=== PATIENT | male | born 1960 | race Caucasian/White ===

== ENCOUNTER 2017-10-27 13:29 | Emergency (ER) | payer BC, SELFPAY ==
[2017-10-27 13:30] VITALS: BP 192/108; PULSE 88; RESP 18; TEMP 36.6; O2SAT 96; BMI 41.4
[2017-10-27 13:40] VITALS: BP 178/107; PULSE 83; RESP 20; O2SAT 99
--- NOTE | 2017-10-27 14:02 | EKG12_ITS ---
Test Reason : NEURO Blood Pressure : / mmHG Vent. Rate : 071 BPM Atrial Rate : 071 BPM P-R Int : 154 ms QRS Dur : 114 ms QT Int : 388 ms P-R-T Axes : 054 086 080 degrees QTc Int : 421 ms Normal sinus rhythm Normal ECG Confirmed by ALANNAH TSAI, NAHOMY ([id number]), newspaper copy editor RICA CHRISTENSEN ([id number]) on 10/29/2017 4:04:39 PM Referred By: ELBERT Confirmed By:NAHOMY JAFFE MD
--- NOTE | 2017-10-27 14:02 | CT_ITS ---
STUDY: CT BRAIN WITHOUT CONTRAST REASON FOR EXAM: Male, 57 years old. Arm and face paresthesia RADIATION DOSAGE (If Supplied By Facility): CTDIvol = ( 44.99 ) mGy, DLP = ( 812.98 ) mGycm TECHNIQUE: Transaxial CT imaging of the brain was performed without administration of intravenous contrast material. Individualized dose optimization techniques were used for this CT. COMPARISON: None. FINDINGS: Normal soft tissue structures. Normal calvarium. Normal size ventricles and extra-axial spaces for the patient's age. Normal white matter tracts of the cerebral hemispheres. Normal basal ganglia and thalami. Normal brainstem. Normal cerebellum. There is no intracranial hemorrhage. There are no findings of an acute ischemic infarction. Normal visualized paranasal sinuses. CT/Brain/Head without Contrast IMPRESSION: Normal unenhanced CT scan of the brain. Electronically Signed: Shanda Nelson MD at 14:44 EST Tel , Service support ,
[2017-10-27 14:10] VITALS: BP 144/91; PULSE 78; RESP 20; O2SAT 97
[2017-10-27] MEDS: 0.9% Normal Saline 1,000 ML 1000 ML IV (14:12)
[2017-10-27 14:16] LABS: Bedside Glucose 103 mg/dL (70-110)
[2017-10-27 14:40] LABS: Absolute Lymphocyte Count 2.19 X10^3/ul (0.83-4.51); Absolute Neutrophil Count 3.9 X10^3/uL (2.0-7.7); Basophil# 0.03 X10^3/uL; Basophil% 0.4 % (0-1); Eosinophil# 0.16 X10^3/uL; Eosinophils% 2.3 % (0-5); Hematocrit 41.1 % (40-54); Hemoglobin 14.5 g/dl (13.0-16.5); Lymphocyte # 2.19 X10^3/ul (4.0); Lymphocyte % 31.6 % (19-41); Mean Corp Hgb Conc 35.3 g/gl (32-36); Mean Corpuscular Hgb 31.7 pg (27.0-32.0); Mean Corpuscular Volume 89.9 fL (80-94); Mean Platelet Vol. 10.6 fl (6.2-12.0); Monocyte# 0.67 X10^3/uL; Monocyte% 9.7 % (0-10); Neutrophil # 3.85 X10^3/uL (2.7-7.7); Neutrophil % 55.4 % (47-70); Platelet Count 178 K/mm3 (150-450); RBC Distribution Width CV 12.9 % (11.6-14.6); Red Blood Count 4.57 M/mm3 (4.6-6.2); White Blood Count 6.9 K/mm3 (4.4-11.0)
[2017-10-27 14:41] LABS: POSITIVE COUNT NO; POSITIVE DIFFERENTIAL NO; POSITIVE MORPHOLOGY NO
[2017-10-27 14:51] LABS: Albumin, Serum 3.8 g/dL (3.2-5.0); Anion Gap 9 (5-15); BUN 21 mg/dL (7-18); BUN/Creat Ratio 19.1 RATIO (10-20); Calcium,Total 8.6 mg/dL (8.5-10.1); Chloride 105 mmol/L (98-107); EST Glomerular Filtration Rate 73 mL/min (>60); Est Glom Filt Rate - Afr Amer 88 mL/min (>60); Estimated Creatinine Clearance 84.07 ml/min; Glucose 111 mg/dL (74-106); Potassium 3.9 mmol/L (3.5-5.1); Sodium Level 141 mmol/L (136-145)
[2017-10-27 15:05] VITALS: BP 143/85; PULSE 72; RESP 18; O2SAT 98
--- NOTE | 2017-10-27 15:29 | ED.VISSUMM ---
- ER Visit Summary Date of Service: 10/27/17 Chief Complaint: Jaw locked History of Present Illness: The patient is a 57 M who his primary care physician is in [place]. He reports that just prior to coming the emergency department he had a single potato chip and his jaw spasmed and locked shot. Notes that it felt as though the left side of his tongue was spasmed as well. States that he was unable to breathe at all, even through his nose. He reports that this episode lasted approximately 2 minutes. He went to the bathroom during this and states that it looked like the left side of his face was paralyzed. That lasted 5-6 minutes. He reports that he was unable to swallow during this episode. That lasted 3-4 minutes. He reports that he had a similar episode approximately 7 weeks ago. Patient on review of systems states that he has very slight paresthesias in his left arm. He denies any other neurologic complaints. No weakness. No change in his vision. No difficulty walking. Physical Examination: Vitals: Stable. Afebrile. Neurological: Cranial nerves II through XII are intact. 5 out of 5 strength throughout. Normal sensation to light touch throughout. Normal yuqphn-tojz-znzuwi and wibw-hymo-gzdi bilaterally. Normal gait. Soft palate elevates bilaterally and symmetric. General: A&O x 3. NAD. Cardiovascular exam: Regular rate and rhythm, no murmur, rub or gallop. Respiratory exam: Clear to auscultation bilaterally. No wheezes or stridor. Abdominal exam: Soft, nontender, nondistended, normal bowel sounds. No peritoneal signs. Extremity: No clubbing, cyanosis, or edema. Test Results: CT brain is normal. CBC is normal. EKG is sinus at 71 with no acute changes. Chem-7 is normal. Emergency Department Course and Treatment: Patient has rested comfortably throughout 2 hour stay in the emergency department without complaint. Had a prolonged discussion with them about this episode. His inability to breathe makes me believe that he had laryngeal spasm. I do not have an explanation for his jaw locking shot or his tongue cramping off in addition to this. He states that he is under a great deal of stress. He denies a history of reflux or heartburn. However, given the laryngeal spasm he is given a dose of Protonix. Treatment Plan: Patient will be discharged on Prilosec. Instructed to follow-up his primary care physician as soon as possible. I feel that he should also see an gear shaver set up operator. Return to the emergency department for any worsening symptoms. Disposition: To home in improved and stable condition. Impression: 1. Laryngeal spasm, uncertain cause. 2. [place] spasm. This note was generated with [employer] dictation software. It may contain incorrect words, spelling, and punctuation that were not noted in review of the chart prior to signing ED Disposition - Plan for ED Patient: Disposition: Home or Assisted Living Chief Complaint: Neuro S/Sx Prescriptions: Omeprazole [Prilosec] 20 mg PO DAILY #30 capsule Referrals: Doctor,Your [STAFF PHYSICIAN] - As soon as possible Additional Instructions: Speak with your Doctor about referral to an ENT for further evaluation.
--- NOTE | 2017-10-27 15:32 | ED.DCSUM_ITS ---
- ER Visit Summary Date of Service: 10/27/17 Chief Complaint: Jaw locked History of Present Illness: The patient is a 57 M who his primary care physician is in [place]. He reports that just prior to coming the emergency department he had a single potato chip and his jaw spasmed and locked shot. Notes that it felt as though the left side of his tongue was spasmed as well. States that he was unable to breathe at all, even through his nose. He reports that this episode lasted approximately 2 minutes. He went to the bathroom during this and states that it looked like the left side of his face was paralyzed. That lasted 5-6 minutes. He reports that he was unable to swallow during this episode. That lasted 3-4 minutes. He reports that he had a similar episode approximately 7 weeks ago. Patient on review of systems states that he has very slight paresthesias in his left arm. He denies any other neurologic complaints. No weakness. No change in his vision. No difficulty walking. Physical Examination: Vitals: Stable. Afebrile. Neurological: Cranial nerves II through XII are intact. 5 out of 5 strength throughout. Normal sensation to light touch throughout. Normal finger-nose- finger and cxob-svzy-wzuc bilaterally. Normal gait. Soft palate elevates bilaterally and symmetric. General: A&O x 3. NAD. Cardiovascular exam: Regular rate and rhythm, no murmur, rub or gallop. Respiratory exam: Clear to auscultation bilaterally. No wheezes or stridor. Abdominal exam: Soft, nontender, nondistended, normal bowel sounds. No peritoneal signs. Extremity: No clubbing, cyanosis, or edema. Test Results: CT brain is normal. CBC is normal. EKG is sinus at 71 with no acute changes. Chem-7 is normal. Emergency Department Course and Treatment: Patient has rested comfortably throughout 2 hour stay in the emergency department without complaint. Had a prolonged discussion with them about this episode. His inability to breathe makes me believe that he had laryngeal spasm. I do not have an explanation for his jaw locking shot or his tongue cramping off in addition to this. He states that he is under a great deal of stress. He denies a history of reflux or heartburn. However, given the laryngeal spasm he is given a dose of Protonix. Treatment Plan: Patient will be discharged on Prilosec. Instructed to follow- up his primary care physician as soon as possible. I feel that he should also see an corporate securities research analyst. Return to the emergency department for any worsening symptoms. Disposition: To home in improved and stable condition. Impression: 1. Laryngeal spasm, uncertain cause. 2. [place] spasm. This note was generated with [employer] dictation software. It may contain incorrect words, spelling, and punctuation that were not noted in review of the chart prior to signing ED Disposition - Plan for ED Patient: Disposition: Home or Assisted Living Chief Complaint: Neuro S/Sx Prescriptions: Omeprazole [Prilosec] 20 mg PO DAILY #30 capsule Referrals: Doctor,Your [STAFF PHYSICIAN] - As soon as possible Additional Instructions: Speak with your Doctor about referral to an ENT for further evaluation.
[2017-10-27] MEDS: Pantoprazole Sodium 20 MG Tablet PO (15:49)
== END 2017-10-27 15:52 | disposition home or self-care (01) ==
PROVIDERS: Emergency Provider Emergency Medicine
DX: J38.5 Laryngeal spasm (principal); R25.2 Cramp and spasm; I10 Essential (primary) hypertension; E78.00 Pure hypercholesterolemia, unspecified; Z86.73 Personal history of transient ischemic attack (TIA), and cerebral infarction without residual deficits; Z87.891 Personal history of nicotine dependence
CPT/HCPCS: 70450; 80048; 82040; 82962; 85025; 93005; 96360; 99285; J7030; A4216